=== PATIENT | male | born 1965 | race Caucasian/White ===

== ENCOUNTER 2019-04-20 07:05 | Emergency (ER) | payer BC ==
--- NOTE | 2019-04-20 07:17 | Emergency Department Record ---
History of Present Illness - General Chief Complaint: Ankle/Foot Injury Stated Complaint: FOOT INJURY Time Seen by Provider: 04/20/19 07:11 Source: Patient Mode of Arrival: Ambulatory Limitations: No limitations - History of Present Illness Initial Comments: 53 yo male presents with pain and bruising over the 5th digit on the right foot. He was working yesterday and dropped a cinder block on the foot. He was wearing tennis shoes at the time. No lacerations or bleeding. No breaks in the skin. MD Complaint: Foot injury -: Days(s) (1) Type of Injury: Blunt Place: Home Severity: Moderate Improves With: Immobilization Worsens With: Movement, Palpation, Weight bearing Context: Other (dropped heavy object) Other Symptoms: Other Associated Symptoms: Swelling - Related Data Allergies Allergy/AdvReac Type Severity Reaction Status Date / Time ibuprofen [From Motrin] AdvReac NAUSEA AND Verified 04/20/19 07:10 VOMITING Penicillins AdvReac NAUSEA AND Verified 04/20/19 07:10 VOMITING Review of Systems Constitutional: Denies: Chills, Fever, Malaise, Weakness Eyes: Denies: Eye discharge ENT: Denies: Congestion Respiratory: Denies: Cough, Dyspnea Cardiovascular: Denies: Chest pain Endocrine: Denies: Fatigue Gastrointestinal: Denies: Abdominal pain, Diarrhea, Nausea, Vomiting Genitourinary: Denies: Dysuria, Frequency, Hematuria Musculoskeletal: Reports: Arthralgia, Joint swelling Skin: Reports: Bruising. Denies: Change in color, Rash Neurological: Denies: Headache, Numbness, Weakness Psychiatric: Denies: Anxiety Hematological/Lymphatic: Denies: Easy bleeding, Easy bruising Past Medical History - SOCIAL HISTORY Smoking Status: Current every day smoker Drug Use: None - RESPIRATORY Hx Respiratory Disorders: No - CARDIOVASCULAR Hx Cardio Disorders: No - NEURO Hx Neuro Disorders: No - GI Hx GI Disorders: Yes Hx Reflux: Yes - Hx Genitourinary Disorders: No - ENDOCRINE Hx Endocrine Disorders: No - MUSCULOSKELETAL Hx Musculoskeletal Disorders: Yes Comment:: Chronic shoulder pain - PSYCH Hx Psych Problems: No - HEMATOLOGY/ONCOLOGY Hx Hematology/Oncology Disorders: No Family Medical History Hx Diabetes: Father, Mother Hx Resp Disorders: Mother Physical Exam - General General Appearance: Alert, Oriented x3, Cooperative, No acute distress Limitations: No limitations - Head Head exam: Atraumatic - Eye Eye exam: Normal appearance - ENT ENT exam: Normal exam Ear exam: Normal external inspection Nasal Exam: Normal inspection - Neck Neck exam: Normal inspection - Cardiovascular Peripheral Pulses: 2+: Dorsalis Pedis (R) - Extremities Extremities exam: Full ROM, Joint swelling, Normal capillary refill, Tenderness. negative: Normal inspection Image of Feet: 1 - tenderness and bruising, no deformity, intact nail, intact DP pulses - Neurological Neurological exam: Alert, Oriented X3 - Psychiatric Psychiatric exam: Normal affect, Normal mood - Skin Skin exam: Dry, Intact, Normal color, Warm Course - Reevaluation(s) Reevaluation #1: 04/20/19 07:43 The patient wears steel toed boots for work that will not be able to the next several days XRay was read as negative but given pain and swelling off work next 3 days 04/20/19 09:18 Disposition Disposition: Discharge Clinical Impression: Contusion of foot, right Qualifiers: Encounter type: initial encounter Qualified Code(s): S90.31XA - Contusion of right foot, initial encounter Disposition: Home, Self-Care Condition: (1) Good Instructions: Toe Fracture (ED) Additional Instructions: Elevate the foot to minimize swelling You may ice the area 2-3 times daily as well If pain last more than a week see your doctor for a recheck Tylenol or Motrin for discomfort Use the boot for support and comfort this week Forms: Patient Portal Access Time of Disposition: 07:43 Quality - Quality Measures Quality Measures: N/A - Blood Pressure Screening Does Patient Have Any of the Following: No Blood Pressure Classification: Pre-Hypertensive BP Reading Systolic Measurement: 134 Diastolic Measurement: 83 Screening for High Blood Pressure: < Pre-Hypertensive BP, F/U Documented > [[id number]] Pre-Hypertensive Follow-up Interventions: Referral to alternative/primary care provider.
--- NOTE | 2019-04-22 05:28 | RADIOLOGY REPORT ---
DATE: 04/20/2019. EXAM: RIGHT FOOT. HISTORY: PAIN. TECHNIQUE: Three views of the right foot were provided. FINDINGS: No evidence of fracture or dislocation. No lytic or blastic lesion. IMPRESSION: NEGATIVE FOR FRACTURE OR DISLOCATION. Job Number: [id number] MTDD
== END 2019-04-20 07:49 | disposition home or self-care (01) ==
LOC: ER 07:05
DX: S90.31XA Contusion of right foot, initial encounter (principal); W22.8XXA Striking against or struck by other objects, initial encounter; Y92.009 Unspecified place in unspecified non-institutional (private) residence as the place of occurrence of the external cause; F17.210 Nicotine dependence, cigarettes, uncomplicated
CPT/HCPCS: 99283